=== PATIENT | female | born 1970 | race Caucasian/White ===

== ENCOUNTER → 2020-06-30 10:25 | Outpatient (BNVA) | payer OTHER, SELFPAY | PROVIDERS: PCP Nurse Practitioner Family; Visit Provider Surgery ==

== ENCOUNTER → 2020-07-14 08:37 | Outpatient (BNVA) | payer OTHER, SELFPAY | PROVIDERS: PCP Nurse Practitioner Family; Visit Provider Surgery ==

== ENCOUNTER → 2020-07-28 11:00 | Outpatient (BNVA) | payer OTHER, SELFPAY | PROVIDERS: PCP Nurse Practitioner Family; Visit Provider Dietitian, Registered | DX: E66.9 Obesity, unspecified (principal); Z68.41 Body mass index [BMI] 40.0-44.9, adult | CPT/HCPCS: 97802 ==

== ENCOUNTER 2020-08-01 16:00 | Outpatient (REF) | payer OTHER, SELFPAY ==
[2020-08-02 14:22] LABS: H Pylori Breath Test NOT DETECTED (NOT DETECTED)
== END 2020-08-01 16:01 | disposition home or self-care (01) ==
LOC: HO.LNP 16:00
PROVIDERS: Surgery; PCP Nurse Practitioner Family; Visit Provider Physician Assistant
DX: Z01.818 Encounter for other preprocedural examination (principal); Z11.0 Encounter for screening for intestinal infectious diseases
CPT/HCPCS: 83013

== ENCOUNTER → 2020-08-11 10:14 | Outpatient (BNVA) | payer OTHER, SELFPAY | PROVIDERS: PCP Nurse Practitioner Family; Visit Provider Surgery ==

== ENCOUNTER → 2020-09-08 14:26 | Outpatient (BNVA) | payer OTHER, SELFPAY | PROVIDERS: PCP Nurse Practitioner Family; Referring Provider Nurse Practitioner Family; Visit Provider Surgery ==

== ENCOUNTER 2020-10-06 08:05 | Outpatient (REF) | payer OTHER, SELFPAY ==
--- NOTE | ~2020-10-06 | XR_ITS ---
EXAMINATION: XR CHEST CLINICAL INFORMATION: Shortness of breath COMPARISON: None TECHNIQUE: 2 views of the chest were obtained. FINDINGS: The lungs are clear. There is no hyperinflation, infiltrate, or effusion. The costophrenic sulci are well-defined. The heart is normal in size. The hilar and mediastinal contours are unremarkable. No visible acute bony abnormality. XR/XR chest 2V IMPRESSION: Unremarkable examination.
--- NOTE | 2020-10-06 08:12 | ECG_ITS ---
Test Reason : SOB Blood Pressure : / mmHG Vent. Rate : 053 BPM Atrial Rate : 053 BPM P-R Int : 150 ms QRS Dur : 100 ms QT Int : 446 ms P-R-T Axes : -09 017 025 degrees QTc Int : 418 ms Sinus bradycardia Incomplete right bundle branch block Borderline ECG When compared with ECG of 24-JUL-2017 12:55, No significant change was found Referred By: Saige Mcgrath Electronically Signed By:NICOLE SWANSON
[2020-10-06 08:45] LABS: MANUAL DIFF FLAG NO
[2020-10-06 08:54] LABS: Basophils Percent Auto 0.4 % (0-2); Eosinophils Absolute Auto 0.1 X10*3/uL (0.0-0.4); Eosinophils Percent Auto 1.6 % (0-4); Hematocrit 40.3 % (37-47); Hemoglobin 13.8 g/dl (12.0-16.0); Imm Gran Abs Auto 0.02 X10*3/uL (0.00-0.03); Imm Gran Pct Auto 0.3 % (0.0-0.4); Lymphocytes Absolute Auto 1.3 X10*3/uL (1.2-4.9); Lymphocytes Percent Auto 19.3 % (20-40); Mean Corpuscular HGB Conc 34.2 g/dl (31.0-35.0); Mean Corpuscular Hemoglobin 33.3 pg (27.0-33.0); Mean Corpuscular Volume 97.1 fL (80-98); Mean Platelet Volume 10.3 fL (9.4-12.3); Monocytes Absolute Auto 0.5 X10*3/uL (0.1-1.2); Monocytes Percent Auto 7.3 % (2-11); Neutrophils Absolute Auto 4.8 X10*3/uL (2.0-8.3); Neutrophils Percent Auto 71.1 % (45-73); Platelet Count 239 X10*3/uL (160-400); Red Blood Count 4.15 X10*6/uL (4.20-5.50); Red Cell Distribution Width 12.8 % (11.0-16.0); White Blood Count 6.8 X10*3/uL (4.8-10.8)
[2020-10-06 09:02] LABS: Estimated Average Glucose 94 mg/dL; Hemoglobin A1c % 4.9 %
[2020-10-06 09:18] LABS: Alanine Aminotransferase 23 U/L (0-31); Albumin Level 4.2 g/dL (3.5-5.0); Alkaline Phosphatase 83 U/L (39-117); Anion Gap 12 (12-20); Aspartate Amino Transferase 20 U/L (5-31); Bilirubin Total 0.8 mg/dL (0.0-1.0); Blood Urea Nitrogen 14 mg/dL (9-16); C Reactive Protein 0.59 mg/dL (< or = 0.50); Calcium 9.4 mg/dL (8.4-10.2); Carbon Dioxide 24 mmol/L (22-29); Chloride 106 mmol/L (96-108); Cholesterol 188 mg/dL; Estimated Glomerular Filt Rate > 60; Glucose Fasting 96 mg/dL (60-99); HDL Cholesterol 64 mg/dL; Iron 150 mcg/dL (30-160); LDL Cholesterol Calculated 114 mg/dl; Percent Iron Saturation 51 % (15-50); Potassium 4.1 mmol/L (3.3-5.1); Sodium 138 mmol/L (135-145); Total Iron Binding Capacity 292 mcg/dL (228-428); Total Protein 6.8 g/dL (6.5-8.0); Triglycerides 52 mg/dL; Unsaturated Iron Binding 142 ug/dL
[2020-10-06 09:40] LABS: Thyroid Stimulating Hormone 1.67 uIU/mL (0.32-4.0); Vitamin D 25-OH Total 26.8 ng/mL (>30)
[2020-10-06 09:49] LABS: Vitamin B12 462 pg/mL (200-900)
[2020-10-09 15:47] LABS: Calcium (PTHI) 9.3 mg/dL (8.6-10.2); PTHI 62 pg/mL (14-64)
[2020-10-10 07:06] LABS: Zinc 76 mcg/dL (60-130)
[2020-10-11 15:37] LABS: Vitamin A 50 mcg/dL (38-98)
[2020-10-12 15:01] LABS: Vitamin B1 14 nmol/L (8-30)
[2020-10-14 22:56] LABS: Cotinine, U 24 ng/mL; Nicotine, U 31 ng/mL
== END 2020-10-06 08:06 | disposition home or self-care (01) ==
LOC: HO.LAB 08:05
PROVIDERS: PCP Registered Nurse; Visit Provider Surgery
DX: Z01.818 Encounter for other preprocedural examination (principal); K91.2 Postsurgical malabsorption, not elsewhere classified; E66.9 Obesity, unspecified; R06.02 Shortness of breath; Z68.39 Body mass index [BMI] 39.0-39.9, adult; F17.200 Nicotine dependence, unspecified, uncomplicated; Z90.3 Acquired absence of stomach [part of]
CPT/HCPCS: 71046; 80053; 80061; 80323; 82306; 82607; 83036; 83540; 83970; 84425; 84443; 84590; 84630; 85025; 86140; 93005

== ENCOUNTER → 2020-11-24 09:32 | Outpatient (BNVA) | payer OTHER, SELFPAY | PROVIDERS: PCP Registered Nurse; Visit Provider Internal Medicine Cardiovascular Disease ==

== ENCOUNTER → 2020-12-15 11:29 | Outpatient (BNVA) | payer OTHER, SELFPAY | PROVIDERS: PCP Registered Nurse; Visit Provider Surgery ==

== ENCOUNTER → 2021-01-05 10:22 | Outpatient (REF) | payer OTHER, SELFPAY ==
--- NOTE | 2021-01-05 10:25 | CA_ITS ---
Transthoracic Echocardiogram Patient (Last, First, Middle): Corinne Lockett, Gender: Female Date of : 1970 Age: 50 Procedure Date: 01/05/2021 Procedure Type: Transthoracic Echocardiogram Location: OP Height: 165.1 cm Weight: 107.5 kg BSA: 2.13 m2 Heart Rate: bpm BP: 141 / 75 mmHg Chiropractor Sole Practitioner: JHOANA Referring MD: Gene Degroot MD Symptoms: I45.10 - Unspecified right bundle-branch block Study Quality: Fair/Contrast Conclusions: - Normal biventricular function. No significant valvular or pericardial pathology noted. Normal PA pressures. Findings Procedure Information Contrast agent, definity, is being given per protocol without apparent complications. Left Ventricle Normal left ventricular size, thickness, systolic function, and wall motion. The visually estimated ejection fraction is between 60-65%. Diastolic function is normal for age. Right Ventricle Normal right ventricular cavity size and systolic function. Atria Both atria are normal in size. Aortic Valve Normal aortic valve structure and function. There is no aortic valve stenosis. There is no aortic valve regurgitation. Mitral Valve Normal mitral valve structure and function. There is no mitral valve regurgitation. There is no mitral valve stenosis. Pulmonic Valve Normal pulmonic valve structure and function. There is no pulmonic valve regurgitation. Tricuspid Valve Normal tricuspid valve structure and function. There is no tricuspid valve regurgitation. Normal right atrial pressure. There is no evidence of pulmonary hypertension. Great Vessels The visualized portions of the pulmonary artery and branches are normal. Venous The inferior vena cava is normal in size and collapses greater than 50% with inspiration. Pericardium/Pleural There is no evidence of pericardial effusion. Prior Study Comparison No prior study available for comparison. Measurements 2D Linear Measurements IVSd: 0.95 0.6-0.9/0.6-1.0 cm LVIDd: 4.78 3.9-5.3/4.2-5.9 cm LVIDd Index: 2.24 2.4-3.2/2.2-3.1 cm/m2 LVIDs: 2.87 2.0-3.6 cm LVPWd: 0.79 0.7-1.1 cm Ao Root: 2.80 2.1-3.5 cm LA Diam: 3.30 2.7-3.8/3.0-4.0 cm LAIDs Index: 1.55 1.5-2.3 cm/m2 LV Mass: 174.94 67-162/88-224 g LV Mass Index: 82.13 43-95/49-115 g/m2 LVOT Diam: 2.10 3.0+(-)1.3 cm 2D Systolic Function EF 4C: 69.60 >55% EF 2C: 63.50 >55% EF BiP: 66.30 >55% Mitral Valve MV Pk E: 1.01 MV PK A: 1.18 MV Decel Time: 291.00 E/A: 0.90 E'Lateral: 11.90 E'Medial: 8.59 E/E' Med: 11.80 E/E' Lat: 8.50 PHT: 85.00 MVA PHT: 2.59 Decel Ford: 3.49 Aortic Valve AoV Pk Josias: 1.62 AoV Mn Josias: 1.14 AoV VTI: 0.30 AoV Pk Grad: 10.00 Aov Mn Grad: 6.00 MARKELL Cont.VTI: 2.55 LVOT LVOT Pk Josias: 1.13 LVOT Mn Josias: 0.77 LVOT VTI: 0.22 LVOT Pk Grad: 5.00 LVOT Mn Grad: 3.00 LVOT Diam: 2.10 LVOT Area: 3.46 Diastolic Function MV Pk E: 1.01 MV Pk A: 1.18 E/A: 0.90 E'Medial: 8.59 E/E' Med: 11.80 E' Laterial: 11.90 E/E' Lat: 8.50 Right Ventricle TAPSE (mm): 1.80 TVS' Josias: 13.70 Tricuspid Valve RA Press: 3.00 Great Vessels Aorta Ao Root-2D: 2.80 2.0-3.7 cm Ao Asc: 2.80 2.1-3.4 cm Ao Arch: 2.60 Updated in Other Vendor System with Status of Final Chandra Alves MD electronically signed on 01/07/2021 1:43:47 PM with status of Final
== END ==
LOC: HO.CARD 10:22
PROVIDERS: PCP Registered Nurse; Visit Provider Internal Medicine Cardiovascular Disease
DX: I45.10 Unspecified right bundle-branch block (principal)
CPT/HCPCS: 93306; Q9957

== ENCOUNTER 2021-01-11 12:44 | Outpatient (REF) | payer OTHER, SELFPAY ==
--- NOTE | ~2021-01-11 | XR_ITS ---
EXAMINATION: STANDING VIEWS OF BOTH KNEES. RIGHT KNEE. CLINICAL INFORMATION: Pain. COMPARISON: Right knee November 21, 2017. Standing view of both knees November 21, 2017 TECHNIQUE: Frontal weightbearing view of each knee. Nonweightbearing lateral view and a nonweightbearing sunrise view patella. FINDINGS: Status post right knee replacement. Orthopedic components in position with no evidence of loosening. No fracture. No joint effusion. There is moderate narrowing of the medial femoral tibial joint of the left knee. XR/XR knee RT 2V IMPRESSION: Status post right knee replacement. No acute abnormality of the knee.
--- NOTE | ~2021-01-11 | XR_ITS ---
EXAMINATION: STANDING VIEWS OF BOTH KNEES. RIGHT KNEE. CLINICAL INFORMATION: Pain. COMPARISON: Right knee November 21, 2017. Standing view of both knees November 21, 2017 TECHNIQUE: Frontal weightbearing view of each knee. Nonweightbearing lateral view and a nonweightbearing sunrise view patella. FINDINGS: Status post right knee replacement. Orthopedic components in position with no evidence of loosening. No fracture. No joint effusion. There is moderate narrowing of the medial femoral tibial joint of the left knee. XR/XR knee standing BI IMPRESSION: Status post right knee replacement. No acute abnormality of the knee.
== END 2021-01-11 12:45 | disposition home or self-care (01) ==
LOC: HO.HOSX 12:44
PROVIDERS: Visit Provider Orthopaedic Surgery
DX: Z96.651 Presence of right artificial knee joint (principal); Z79.899 Other long term (current) drug therapy
CPT/HCPCS: 73560; 73565

== ENCOUNTER → 2021-01-22 13:31 | Outpatient (BNVA) | payer OTHER, SELFPAY | PROVIDERS: PCP Registered Nurse; Visit Provider Surgery ==

== ENCOUNTER 2021-02-05 09:13 | Outpatient (REF) | payer OTHER, SELFPAY ==
--- NOTE | ~2021-02-05 | FL_ITS ---
EXAMINATION: XR FLUOROSCOPY UPPER GI WITH AIR CLINICAL INFORMATION: Moderate to severe obesity due to excess calories. COMPARISON: None. TECHNIQUE: Routine upper GI air-contrast study was performed in upright and lying position. FINDINGS: Following oral administration of thick barium and effervescent granules there is normal propagation bolus from the oral cavity through the pharynx, esophagus into stomach without any evidence of obstruction, narrowing or stricture. On placing patient supine and prone lying the course, caliber and peristalsis of the stomach and the duodenal bulb is normal. Mild gastroesophageal reflux is noted. There is no hiatal hernia. The mucosal pattern of the stomach and the duodenum is normal. There is evidence of previous cholecystectomy changes.. FLUOROSCOPY TIME: 1.7 minutes DOSE AREA PRODUCT: 43.385 uGy-m2 (microgray-meter squared) FL/FL upper GI w air IMPRESSION: Mild gastroesophageal reflux without hiatal hernia. Rest of the upper GI exam is unremarkable. There is evidence of previous cholecystectomy.
--- NOTE | ~2021-02-05 | US_ITS ---
EXAMINATION: US COMPLETE ABDOMEN WITH LIVER ELASTOGRAPHY CLINICAL INFORMATION: Obesity COMPARISON: None. TECHNIQUE: Real-time imaging of the abdominal viscera. Noninvasive ultrasound liver fibrosis assessment is performed using Karan ElastPQ point quantification shear wave elastography (pSWE) with a C5-2 MHz transducer. Multiple elastography samples are obtained. FINDINGS: PANCREAS: The visualized pancreatic head and body are normal in appearance. The remainder of the pancreas is obscured from visualization by the overlying bowel gas. ABDOMINAL AORTA: The proximal, middle, and distal aortic segments are normal in caliber. INFERIOR VENA CAVA: Visualized portions are normal. LIVER: Normal. The liver demonstrates normal size, contour and echogenicity. No focal lesion or intrahepatic biliary duct dilatation. The right lobe measures 16 cm in length. The left lobe measures 10 cm in length. Portal flow is normal/hepatopedal Shear wave liver elastography median stiffness is 1.6 m/s (reference: normal median stiffness is 1.3 m/s or less). IQR/median stiffness to assess sampling precision is 0.19 (reference: good quality data set is IQR/median stiffness of 0.15 or less). GALLBLADDER: Surgically absent. COMMON BILE DUCT: Normal in caliber measuring 0.3 cm in diameter. RIGHT KIDNEY: Normal. No hydronephrosis. No renal calculi or focal parenchymal lesions. The kidney measures 11 cm in maximum dimension. LEFT KIDNEY: Normal. No hydronephrosis. No renal calculi or focal parenchymal lesions. The kidney measures 11.4 cm in maximum dimension. SPLEEN: Normal. The spleen measures 9 cm in maximum dimension. FREE FLUID: None. US/US abdomen comp w elastography IMPRESSION: 1. Impression: Normal-appearing liver. Post cholecystectomy. Limited visualization of the tail of the pancreas. 2. Liver elastography: Mild sampling error. In the absence of other known clinical signs, rules out compensated advanced chronic liver disease. REFERENCE: Society of Radiologists in Ultrasound Liver Stiffness Thresholds (2020): LIVER STIFFNESS THRESHOLDS: *Liver Stiffness equal or less than 1.3 m/s: High probability of being normal. *Liver Stiffness less than 1.7 m/s: In the absence of other known clinical signs, rules out compensated advanced chronic liver disease. *Liver Stiffness 1.7-2.1 m/s: Suggestive of compensated advanced chronic liver disease but need further test for confirmation. *Liver Stiffness over 2.1 m/s: Rules in compensated advanced chronic liver disease. *Liver Stiffness over 2.4 m/s: Suggestive of clinically significant portal hypertension. QUALITY OF DATA SET: *IQR/Median value equal or less than 0.15 implies a quality data set. *IQR/Median value over 0.15 implies a poor quality data set. SIGNIFICANT CHANGE FROM PRIOR EXAM: Significant change if liver stiffness measurement is 10% or greater from prior exam. OTHER CONSIDERATIONS: The stage of liver fibrosis may be overestimated in the setting of acute hepatitis, liver inflammation, elevated liver function tests, hepatic vascular congestion, obstructive cholestasis, non-fasting state, and infiltrative diseases such as amyloidosis and lymphoma. In some patients with NAFLD, the liver stiffness thresholds for compensated advanced chronic liver disease may be lower. In causes other than viral hepatitis and NAFLD, liver stiffness thresholds are not well established.
== END 2021-02-05 09:14 | disposition home or self-care (01) ==
LOC: HO.US 09:13
PROVIDERS: PCP Registered Nurse; Visit Provider Surgery
DX: Z01.818 Encounter for other preprocedural examination (principal); E66.01 Morbid (severe) obesity due to excess calories; K21.9 Gastro-esophageal reflux disease without esophagitis; F32.A Depression, unspecified; F17.210 Nicotine dependence, cigarettes, uncomplicated; Z68.38 Body mass index [BMI] 38.0-38.9, adult; Z90.49 Acquired absence of other specified parts of digestive tract; Z88.6 Allergy status to analgesic agent; Z91.018 Allergy to other foods; Z79.899 Other long term (current) drug therapy
CPT/HCPCS: 74246; 76705; 76981

== ENCOUNTER → 2021-02-09 07:52 | Outpatient (BNVA) | payer OTHER, SELFPAY | PROVIDERS: PCP Registered Nurse; Visit Provider Physician Assistant ==

== ENCOUNTER 2021-02-15 07:42 | Day surgery (SDC) | payer OTHER, SELFPAY ==
[2021-02-08 09:57] VITALS: BMI 38.2
[2021-02-09 09:09] LABS: MANUAL DIFF FLAG NO
[2021-02-09 10:00] LABS: Basophils Percent Auto 0.5 % (0-2); Eosinophils Absolute Auto 0.1 X10*3/uL (0.0-0.4); Hematocrit 42.1 % (37.0-47.0); Hemoglobin 14.3 g/dl (12.0-16.0); Imm Gran Abs Auto 0.02 X10*3/uL (0.00-0.03); Imm Gran Pct Auto 0.3 % (0.0-0.4); Lymphocytes Absolute Auto 1.3 X10*3/uL (1.2-4.9); Mean Corpuscular Hemoglobin 33.4 pg (27.0-33.0); Mean Corpuscular Volume 98.4 fL (80.0-98.0); Monocytes Absolute Auto 0.5 X10*3/uL (0.1-1.2); Monocytes Percent Auto 8.9 % (2-11); Neutrophils Absolute Auto 4.1 x10*3/uL (2.0-8.3); Neutrophils Percent Auto 68.3 % (45-73); Platelet Count 215 X10*3/uL (160-400); Red Blood Count 4.28 X10*6/uL (4.20-5.50); Red Cell Distribution Width 12.6 % (11.0-16.0)
[2021-02-09 10:05] LABS: INTERNATIONAL NORM RATIO 1.1 (0.9-1.1); Prothrombin Time 12.5 SEC (9.9-13.0)
[2021-02-09 10:08] LABS: Partial Thromboplastin Time 36.3 SEC (24.1-38.0)
[2021-02-09 10:10] LABS: Estimated Average Glucose 91 mg/dL; Hemoglobin A1c % 4.8 %
[2021-02-09 10:34] LABS: Alanine Aminotransferase 41 U/L (0-31); Albumin Level 4.4 g/dL (3.5-5.0); Alkaline Phosphatase 86 U/L (39-117); Anion Gap 13 (12-20); Aspartate Amino Transferase 32 U/L (5-31); Bilirubin Total 0.7 mg/dL (0.0-1.0); Blood Urea Nitrogen 17 mg/dL (9-16); C Reactive Protein 0.58 mg/dL (< or = 0.50); Calcium 9.6 mg/dL (8.4-10.2); Carbon Dioxide 23 mmol/L (22-29); Chloride 105 mmol/L (96-108); Cholesterol 193 mg/dL; Creatinine Clr Calc Pharmacy 88.7; Estimated Glomerular Filt Rate > 60; Glucose Random 82 mg/dL (60-115); HDL Cholesterol 59 mg/dL; LDL Cholesterol Calculated 121 mg/dl; Potassium 4.4 mmol/L (3.3-5.1); Sodium 137 mmol/L (135-145); Total Protein 7.1 g/dL (6.5-8.0); Triglycerides 67 mg/dL
[2021-02-09 10:55] LABS: Insulin 8 uU/mL (2-29); TSH reflex Free T4 1.83 uIU/mL (0.32-4.0)
--- NOTE | 2021-02-10 18:54 | MHC.SHP ---
Pre-Procedural Eval Section A Date of Service: 02/10/21 The patient is an INPATIENT: No The History & Physical has been completed within 30 days and I have reviewed it.: Yes Section B Chief Complaint: Obesity Relevant Family History (Specify if Yes): No Relevant Social History: None Present Medications: None Medical History: No relevant PMH History of Previous Operations: No relevant previous surgery Allergies: Allergies Allergy/AdvReac Type Severity Reaction Status Date / Time codeine [CODEINE] AdvReac Intermediate MIGRAINE Verified 02/08/21 09:51 [place] Allergy Intermediate HIVES Uncoded 02/08/21 09:51 Review of Systems Sugical H&P ROS: Negative: Constitution, Cardiovascular, Respiratory, Neurological, Psychiatric, Hem-Onc, Allergic/Immunologic, Gastrointestinal, Genitourinary, Musculoskeletal, Integumentary, Endocrine and Eyes/Ears/Nose/Throat Exam Surgical H&P Exam: Normal: HEENT, Normal: Heart, Normal: Lungs, Normal: Extremities, Normal: Abdomen, Normal: Skin and Normal: Neurological Plan Diagnosis/Plan: Unchanged I have reviewed the history and physical and performed a pertinent physical examination on my patient. No changes have occurred unless specified.
--- NOTE | 2021-02-14 09:08 | P.CONAN_ITS ---
Documented by User: Rosa Patterson NP 02/14/21 09:10 HPI - Anesthesia Eval Consult details Narrative: 50yo F for Gastrectomy Sleeve, EGD, Poss Diaphragmatic Hernia, Poss Ventral Hernia, Poss open Cardiac cleared at low risk PMFSH Active Problems Active Problems: All Active Problems (Updated 02/05/21 @ 12:56 by Prabhu Sanz MD) BMI 38.0-38.9,adult (Acute) Status post right knee replacement (Acute) Morbid obesity due to excess calories (Acute) BMI 40.0-44.9, adult (Acute) Incomplete right bundle branch block (Acute) Adjustment disorder, unspecified (Acute) Obesity (Acute) BMI 39.0-39.9,adult (Acute) Abnormal EKG (Acute) Smoker (Acute) Depression (Acute) Shortness of breath (Acute) Preoperative examination (Acute) Past Medical History Medical History Depression Gastroesophageal reflux disease Family History Family History Mother Dementia Arthritis Father Hypertension OCD (obsessive compulsive disorder) Kidney tumor Sister No problems noted. Sister Anxiety Brother Acid reflux Surgical History Surgical History H/O gynecological procedure History of ankle surgery History of tonsillectomy and adenoidectomy Hx of cholecystectomy Hx of endoscopy Hx of foot surgery Hx of knee surgery Hx of removal of cyst Hx of tubal ligation Social History Social History Are you a primary care coordination manager to a significant other at home: No Do you presently have visiting nurse or other home services: No Alcohol intake: current Alcohol intake frequency: former alcohol drinker Patient Tobacco Use Status: Former Tobacco user Quit Date: 09/2020 Tobacco use type: Cigarette Cigarettes Per Day: 1 Years Smoked: 34 Smoked in Last 30 Days: No Use of substances other than those prescribed or required for medical reasons: No Have you been hit, kicked, punched, or otherwise hurt by someone within the past year? If so, by whom?: No Are you DNR?: No Advance Directives: No Advance Directives Information Provided: No Advance Directives on File: No Recently lost weight without trying: No How much weight loss: 24-33 pounds Eating poorly because of decreased appetite: No Nutrition screen score: 3 Nutrition Risks: No Nutritional Risk Patient : No Meds Allergies Allergy/AdvReac Type Severity Reaction Status Date / Time codeine [CODEINE] AdvReac Intermediate MIGRAINE Verified 02/15/21 07:25 [place] Allergy Intermediate HIVES Uncoded 02/08/21 09:51 Home Medications Medication Instructions Recorded Confirmed Last Taken Type Lactobacillus acidophilus 10 mg PO DAILY 06/30/20 02/08/21 02/06/21 History (Acidophilus) omeprazole 20 mg capsule,delayed 20 mg PO DAILY 06/30/20 02/08/21 02/15/21 04:45 History release bupropion HCl 300 mg 24 hr tablet, 450 mg PO DAILY tab 07/14/20 02/08/21 Unknown History extended release albuterol sulfate 90 mcg/actuation 2 puff INHALATION Q6H PRN 08/11/20 02/08/21 Unknown History aerosol inhaler cyclobenzaprine 10 mg tablet 10 mg PO BEDTIME PRN tab 09/08/20 02/08/21 02/06/21 History fexofenadine 60 mg tablet (Ally 180 mg PO DAILY tab 09/08/20 02/08/21 02/06/21 History Allergy) cholecalciferol (vitamin D3) 25 25 mcg PO DAILY 11/24/20 02/08/21 02/06/21 History mcg (1,000 unit) capsule cyanocobalamin (vitamin B-12) 1,000 mcg PO DAILY 11/24/20 02/08/21 02/06/21 History 1,000 mcg capsule vitamin B complex (B 1 tab PO DAILY 11/24/20 02/08/21 02/06/21 History Complex-Vitamin B12) Exam Exam Date and Time: February 14, 2021 0908 Height,Weight and Vital Signs: Height 5 ft 5 in Weight 104.326 kg Pertinent Lab Results Pertinent Lab Results: Laboratory Tests 02/09/21 02/09/21 02/09/21 09:05 09:05 09:05 WBC 6.0 RBC 4.28 Hgb 14.3 Hct 42.1 MCV 98.4 H MCH 33.4 H MCHC 34.0 RDW 12.6 Plt Count 215 MPV 11.0 Immature Gran % (Auto) 0.3 Neut % (Auto) 68.3 Lymph % (Auto) 21.0 Davis % (Auto) 8.9 Eos % (Auto) 1.0 Baso % (Auto) 0.5 Lymph # (Auto) 1.3 Davis # (Auto) 0.5 Eos # (Auto) 0.1 Baso # (Auto) 0.0 Abs Immat Gran (auto) 0.02 Absolute Neuts (auto) 4.1 Absolute Nucleated RBC 0.000 Nucleated RBC % (auto) 0.0 PT 12.5 INR 1.1 APTT 36.3 Sodium 137 Potassium 4.4 Chloride 105 Carbon Dioxide 23 Anion Gap 13 BUN 17 H Creatinine 0.93 Estim Creat Clear Calc 88.7 Estimated GFR > 60 Random Glucose 82 Estimat Average Glucose Hemoglobin A1c % Insulin Level 8 Calcium 9.6 Total Bilirubin 0.7 AST 32 H D ALT 41 H Alkaline Phosphatase 86 C-Reactive Protein 0.58 H Total Protein 7.1 Albumin 4.4 Triglycerides 67 Cholesterol 193 LDL Cholesterol, Calc 121 HDL Cholesterol 59 TSH 1.83 Blood Type Antibody Screen 02/09/21 02/09/21 09:05 09:05 WBC RBC Hgb Hct MCV MCH MCHC RDW Plt Count MPV Immature Gran % (Auto) Neut % (Auto) Lymph % (Auto) Davis % (Auto) Eos % (Auto) Baso % (Auto) Lymph # (Auto) Davis # (Auto) Eos # (Auto) Baso # (Auto) Abs Immat Gran (auto) Absolute Neuts (auto) Absolute Nucleated RBC Nucleated RBC % (auto) PT INR APTT Sodium Potassium Chloride Carbon Dioxide Anion Gap BUN Creatinine Estim Creat Clear Calc Estimated GFR Random Glucose Estimat Average Glucose 91 Hemoglobin A1c % 4.8 Insulin Level Calcium Total Bilirubin AST ALT Alkaline Phosphatase C-Reactive Protein Total Protein Albumin Triglycerides Cholesterol LDL Cholesterol, Calc HDL Cholesterol TSH Blood Type O Positive Antibody Screen NEGATIVE Narrative Narrative: EKG 09/2020 Vent. Rate : 053 BPM ? ? Atrial Rate : 053 BPM ?? P-R Int : 150 ms? QRS Dur : 100 ms ? ? QT Int : 446 ms ? ? ? P-R-T Axes : -09 017 025 degrees ?? QTc Int : 418 ms ? Sinus bradycardia Incomplete right bundle branch block Borderline ECG When compared with ECG of 24-JUL-2017 12:55, No significant change was found ECHO Conclusions: - Normal biventricular function. ? No significant valvular or pericardial pathology noted.? Normal PA pressures. ? ?? Assessment and Plan Assessment Anesthesia Assessment: Chart Reviewed Documented by User: Yeison Richardson 02/15/21 09:16 [facility] Past Medical History Medical History Depression Gastroesophageal reflux disease Functional capacity: independent ambulation Family History Family History Mother Dementia Arthritis Father Hypertension OCD (obsessive compulsive disorder) Kidney tumor Sister No problems noted. Sister Anxiety Brother Acid reflux Family history of problems with anesthesia: Yes (Sister ( awarness) ) Surgical History Surgical History H/O gynecological procedure History of ankle surgery History of tonsillectomy and adenoidectomy Hx of cholecystectomy Hx of endoscopy Hx of foot surgery Hx of knee surgery Hx of removal of cyst Hx of tubal ligation History of Problems with Anesthesia: No Social History Social History Are you a primary care coordination manager to a significant other at home: No Do you presently have visiting nurse or other home services: No Alcohol intake: current Alcohol intake frequency: former alcohol drinker Patient Tobacco Use Status: Former Tobacco user Quit Date: 09/2020 Tobacco use type: Cigarette Cigarettes Per Day: 1 Years Smoked: 34 Smoked in Last 30 Days: No Use of substances other than those prescribed or required for medical reasons: No Have you been hit, kicked, punched, or otherwise hurt by someone within the past year? If so, by whom?: No Are you DNR?: No Advance Directives: No Advance Directives Information Provided: No Advance Directives on File: No Recently lost weight without trying: No How much weight loss: 24-33 pounds Eating poorly because of decreased appetite: No Nutrition screen score: 3 Nutrition Risks: No Nutritional Risk Patient : No Meds Allergies Allergy/AdvReac Type Severity Reaction Status Date / Time codeine [CODEINE] AdvReac Intermediate MIGRAINE Verified 02/15/21 07:25 [place] Allergy Intermediate HIVES Uncoded 02/08/21 09:51 Home Medications Medication Instructions Recorded Confirmed Last Taken Type Lactobacillus acidophilus 10 mg PO DAILY 06/30/20 02/08/21 02/06/21 History (Acidophilus) omeprazole 20 mg capsule,delayed 20 mg PO DAILY 06/30/20 02/08/21 02/15/21 04:45 History release bupropion HCl 300 mg 24 hr tablet, 450 mg PO DAILY tab 07/14/20 02/08/21 Unknown History extended release albuterol sulfate 90 mcg/actuation 2 puff INHALATION Q6H PRN 08/11/20 02/08/21 Unknown History aerosol inhaler cyclobenzaprine 10 mg tablet 10 mg PO BEDTIME PRN tab 09/08/20 02/08/21 02/06/21 History fexofenadine 60 mg tablet (Ally 180 mg PO DAILY tab 09/08/20 02/08/21 02/06/21 History Allergy) cholecalciferol (vitamin D3) 25 25 mcg PO DAILY 11/24/20 02/08/21 02/06/21 History mcg (1,000 unit) capsule cyanocobalamin (vitamin B-12) 1,000 mcg PO DAILY 11/24/20 02/08/21 02/06/21 History 1,000 mcg capsule vitamin B complex (B 1 tab PO DAILY 11/24/20 02/08/21 02/06/21 History Complex-Vitamin B12) Exam Airway Mallampati Class: III TM Dist: >3cm Neck ROM: Full Loose/Missing/Broken Teeth: Yes (Crowns ) Heart: rrr Lungs: bl breath sounds Assessment and Plan Final Anesthetic Review Family History of Problems with Anesthesia: Yes (Sister ( awarness) ) History of Problems with Anesthesia: No NPO: Yes ASA Class: III Final Preanesthetic Review: Meds/Allgs Chart Reviewed Patient Risk: Intermediate Procedure Risk: Intermediate Anesthetic Plan Anesthetic Plan: GA Disposition: Standard PACU
[2021-02-15] VITALS (17 sets, daily range): BP systolic 107–137; BP diastolic 63–84; PULSE 60–88; RESP 14–20; TEMP 35.9–37.1; O2SAT 95–99
[2021-02-15 06:54] LABS: COVID-19 Test Negative (Negative); IDNOW Serial# 9DD0AD1C
[2021-02-15] MEDS: Lactated Ringers 1,000 ML 100 ML IVCONT ×3 (06:58→20:49)
[2021-02-15] MEDS: Lactated Ringers 1,000 ML 999 ML IV (07:03)
--- NOTE | 2021-02-15 10:46 | P.DS_ITS ---
DS: Providers Provider Date of Service: 02/16/21 Primary care physician: Alma Laboy NP DS: Summary Hospital Course Hospital Course: ADMITTING DIAGNOSIS: morbid obesity, GERD, paraesophageal hernia, depression DISCHARGE DIAGNOSIS: same, s/p laparoscopic sleeve gastrectomy and repair diaphragmatic hernia PAST SURGICAL HISTORY: cholecystectomy, BTL, orthopedic surgeries PROCEDURE: upper endoscopy, laparoscopic sleeve gastrectomy and repair of diaphragmatic hernia hernia DISCHARGE SUMMARY: History of Present Illness: The patient is a 50 year-old woman with a BMI of 43.0 kg/m2 and associated co-morbidities as described above. The patient had extensive work-up,lost 26 lbs preoperatively and was electively scheduled for laparoscopic, possible open sleeve gastrectomy and gastropexy. Risks and complications of the surgery were discussed with the patient in advance, particularly the possibility of , pulmonary embolism, anastomotic leak, bleeding, bowel injury, GERD, cardiac, renal or pulmonary complications. The patient understood all the risks and was in agreement with the surgical plan. Hospital Course: The patient underwent an uneventful laparoscopic sleeve gastrectomy with gastropexy and repair of diaphragmatic hernia on the day of admission. Postoperatively, the patient was transferred to the surgical floor. The patient received IV Acetaminophen and IV dilaudid for pain control. Patient was started on bariatric phase 1 diet POD #0. On postoperative day one, the patient was feeling well without nausea, vomiting, fevers, or tachycardia. The patient had some mild incisional pain and the abdomen was soft. On the morning of postoperative day one, the patient was continued on 1 ounce of water or ice every half hour. During the day, the patient did fairly well, having some incisional pain, but able to ambulate adequately and to tolerate liquids well. Since the patient is doing well, we decided that the patient was ready to be discharged. The patient was given instructions to follow-up with me next week and to call my office for any fever over 101, persistent abdominal pain, nausea, vomiting, GERD, symptoms of DVT such as calf tenderness, or leg swelling, or pulmonary embolism such as chest pain or shortness of breath. The patient was also instructed to drink 40-60 ounces of liquids per day using the 1-ounce cups. The patient had been given prescriptions for Tylenol for pain, Zofran prn for nausea, and pantoprazole and carafate previously. The patient was encouraged to ambulate and use the incentive spirometer. The patient was allowed to shower, but no baths, and encouraged to stay active at home. All of these instructions were given to the patient personally. All questions were answered and the patient understood all instructions, the instructions were also given to the patient in print. Time Spent with Patient Time attestation: Total time spent providing and/or coordinating discharge services: Discharge coordination time: Less than 30 minutes Quality: Stroke Does the patient have a stroke diagnosis?: No Physical Exam Vital Signs: Vital Signs: Last Vital Signs Temp 98.1 F 02/15/21 10:39 Pulse 87 02/15/21 10:44 Resp 16 02/15/21 10:44 BP 124/66 02/15/21 10:44 Pulse Ox 99 02/15/21 10:44 BMI result Body Mass Index 38.2 DS: Data Data Completed and Pending Pending studies at discharge: Pending at discharge 02/15/21 10:18 Surgical [PTH] Routine Labs on day of discharge: Laboratory Results - last 24 hr 02/15/21 06:15 COVID-19 ([facility]) Negative COVID-19 Clin Com See Note Discharge Plan Discharge Patient Disposition: Home, Self-Care Referrals: Alma Laboy NP [Primary Care Provider] - 1 Week Discharge Medications: Continued albuterol sulfate 90 mcg/actuation HFA aerosol inhaler 2 puff inhalation Q6H PRN (Reason: Wheezing) RF: 0 bupropion HCl 300 mg tablet extended release 24 hr 450 mg PO DAILY RF: 0 fexofenadine [Ally Allergy] 60 mg tablet 180 mg PO DAILY RF: 0 cyclobenzaprine 10 mg tablet 10 mg PO BEDTIME PRN (Reason: muscle spasm) RF: 0 pantoprazole 40 mg tablet,delayed release (DR/EC) 40 mg PO DAILY Qty: 30 RF: 2 sucralfate 100 mg/mL suspension 10 ml PO BID Qty: 400 RF: 2 ondansetron HCl [Zofran] 4 mg tablet 4 mg PO Q12H Qty: 20 RF: 0 Discontinued cyanocobalamin (vitamin B-12) 1,000 mcg capsule 1,000 mcg PO DAILY RF: 0 cholecalciferol (vitamin D3) 25 mcg (1,000 unit) capsule 25 mcg PO DAILY RF: 0 vitamin B complex [B Complex-Vitamin B12] Tablet 1 tab PO DAILY RF: 0 omeprazole 20 mg capsule,delayed release(DR/EC) 20 mg PO DAILY RF: 0 Lactobacillus acidophilus [Acidophilus] Capsule 10 mg PO DAILY RF: 0 polyethylene glycol 3350 [Miralax] 17 gram powder in packet 17 g PO DAILY Qty: 14 RF: 0 naproxen [EC-Naprosyn] 500 mg tablet,delayed release (DR/EC) 500 mg PO BID PRN (Reason: pain) Qty: 30 RF: 1 Discharge Orders: Discharge Order (Routine); Ordered 02/16/21 Ordered By: Prabhu Sanz Activity Restrictions/Additional Instructions: No tub baths, sex or returning to work until discussed at first post op appointment. No exercise, alcohol, tobacco or illegal drug use. Continue to use incentive spirometer hourly while awake. Walk in home for 5- 10 minutes every 2 hours during the first week. Continue phase 1 diet today and start phase 2 diet tomorrow morning. Follow all instructions in the bariatric handbook and call with any questions. 1. Please call your doctor or come back to the emergency room should any new symptoms arise. 2. You will receive a courtesy call from [facility] 24-48 hours after discharge. 3. Activity: abstain from alcohol, practice limited stair climbing, no bending, no driving, no exercise, no illicit substances, no lifting, no sex, no tub bath, no work. 4. Diet: continue as discussed with Dr. Sanz. 5. Dressing Change/Wound Care: Do not change or remove surgical dressings unless they are wet or soiled. 6. Call your doctor if: - Your temperature exceeds 101.5 F - You experience excessive pain or swelling - You have an unexpected reaction to medication - You have excessive bleeding - You experience continued vomiting/nausea - Your incision begins to separate - Your incision shows signs of infection such as increased redness, swelling, excessive pain, heat, or drainage (light blood or clear fluid is normal) 7. General instructions: No lifting greater than 5 lbs for the next 4 weeks[address] driving within 24 hours of taking narcotic pain medications. If you do not move your bowels in the next 2 days, please take milk of magnesia over the counter. Please follow the post op diet and do not advance your diet until you are seen in the office in about 2 weeks. Please walk around your home every hour or two to prevent blood clots from forming in your legs. You do not need to wake from sleeping to walk. Please sleep in a bed or couch to prevent kinking at the hips and knees. Please take your incentive spirometer (your lung patient support partner) home with you and use it for the next few days to prevent pneumonias. You may shower, no hot tubs, baths or swimming pools. Please call the office with any questions or concerns such as increasing abdominal pain, fever, chills, shortness of breath, chest pain, leg pain or swelling, or redness or drainage from your incisions. Do not hesitate to contact the office with any questions at . The patient's medical history has been reviewed and they are considered low risk for post op DVT and therefore DVT prophylaxis is not considered necessary. Travel after surgery was reviewed. The patient has not disclosed any travel plans during the first 30 days after surgery and they have been advised that within the first 30 days after surgery any bus, plane, train or car travel over 2 hours in duration is contraindicated due to the possibility of developing blood clots from immobility. Any travel, needs to include periods of ambulation of 10 minutes in duration every 2 hours. The patient was instructed to discuss any plans for travel during this period with their bariatric surgeon.
[2021-02-15] MEDS: Famotidine/PF 20 MG/2 ML VIAL IVPUSH ×2 (10:54→20:48)
--- NOTE | 2021-02-15 10:54 | P.BOP_ITS ---
Brief Operative Note Date of Service: 02/15/21 Pre-op diagnosis: Morbid obesity and comorbidities (see below) Post-op diagnosis: same Procedure: INITIAL PATIENT BMI ON PRESENTATION AT OUR OFFICE: 42.7 kg/m2 LAST BMI BEFORE SURGERY: 38.5 kg/m2 COMORBIDITIES: GERD, depression, DJD, asthma, liver fibrosis, RBBB The patient participated in an intensive weekly lifestyle ?intervention and exercise program during which the patient ?has lost between the initial office visit and the last preoperative visit 26lbs, or 10.12% of initial actual body weight. The patient met the BMI-criteria for bariatric surgery based on the BMI on initial presentation. The patient should not be penalized for achieving such weight loss because ?it is not sustainable long-term without surgical intervention and it was achieved in preparation for bariatric surgery ?under my direction and based on my published research ([email or web address] and? https://www.soard.org/article/[email or web address](10)88430-X/pdf ) ?that a 10% preoperative weight loss improves long-term weight loss after surgery and reduces perioperative complications.? Insurance carriers such as [employer] have endorsed my recommendations ?and have included in their policies criteria to include a 10% preoperative weight loss requirement. PROCEDURE: Esophago-gastroscopy, laparoscopic repair of incarcerated diaphragmatic hernia, laparoscopic lysis of adhesions, laparoscopic sleeve gastrectomy and laparoscopic gastropexy INDICATIONS: This is a 50 year-old female who was electively scheduled for laparoscopic, possibly open sleeve gastrectomy. The risks and complications of the procedure were discussed with the patient in advance, particularly the possibility of ; pulmonary embolism; staple line leak; bleeding; GERD; cardiac, pulmonary, or renal complications; as well as long-term problems such as insufficient weight loss, vitamin deficiency, strictures, or ulcers. The patient understood all the risks, and was in agreement to proceed with surgery. DESCRIPTION OF PROCEDURE: After informed consent was obtained from the patient, the patient was given preoperative antibiotics, and was transferred to the operating room. After successful induction of general anesthesia, pneumatic compressive devices were placed on both lower extremities. An upper endoscopy was performed next. The oropharynx and esophagus appeared to be within normal limits. There was a diaphragmatic hernia present of moderate size that was not reported at the preoperative upper GI. The stomach was entered. Then after all fluid and air were suctioned and the stomach was fully decompressed, the scope was withdrawn and secured in the mid esophagus. The patient was then prepped and draped in the usual sterile manner, and abdominal access was established at the right upper quadrant with the Ursula technique. A 12 mm blunt port was inserted, and the abdomen was insufflated with CO2 to a pressure of 15 mmHg. Under direct visualization, additional ports were placed, specifically two 5 mm Versi-step ports to the left upper quadrant, and a 5 mm Versi-Step port to the right upper quadrant. 1% lidocaine plain was used to infiltrate all port sites as well as all fascia defects. Following that, the patient was placed in a steep reverse Trendelenburg position. An additional 5 mm port was placed to the right flank for the Mediflex retractor that was used to retract the left lobe of the liver. The gastro-esophageal fat pad was opened with the ultrasonic device (Thunderbeat, Olympus) and the anterior esophagus and hiatus were exposed. The angle of His was opened with the ultrasonic device the fundus of the stomach from any diaphragmatic and splenic attachments. I then opened the gastrocolic ligament between the transverse colon and the greater curvature of the stomach with the ultrasonic device to enter the lesser sac and facilitate the ligation of the short gastric vessels. I started at a mid-point along the greater curvature and using the Thunderbeat, all short gastric vessels were divided all the way to the angle of His until the left sarah was completely dissected at its entirety. I then divided the gastro-colic ligament distally to a distance of about 3-4 cm proximal to the esophagus. There were extensive congenital adhesions between the pancreas and posterior gastric wall. Those were lysed completely with the ultrasonic device. Adhesiolysis took approximately 45 min to complete. There was an obvious significant-sized incarcerated hiatal hernia including the stomach and perigastric fat. I continued dissecting along the hiatus toward the left sarah and the angle of His. I fully mobilized the fat pad that was incarcerated in the hernia. There was a large replaced left hepatic artery at the lesser curvature that was identified and preserved. I then continued by dissecting even further into the posterior retro-esophageal space all the way to the angle of His. I continued to mobilize the esophagus into the mediastinum circumferentially. Both vagal nerves were seen and preserved. At that point, I was able to have at least 3 to 5 cm of esophagus into the abdomen.? After I completely mobilized the esophagus from both the left and right sarah and I had a good mobilization of the esophagus circumferentially, I closed the hernia defect with four interrupted #0 Surgidac sutures using the Endo Stitch device, two of which were placed posterior and two anterior to the esophagus. ? The repair of the diaphragmatic hernia was very difficult due to the large vessel that had to be preserved and limited exposure as well as the incarcerated component and the large amount of fat in the area. The operation was prolonged for an additional hour for a total operative time of two hours and 15 minutes. The stomach was then divided transversely with one Endo SARI-45 purple, one SARI- 45 orange and four SARI-60 articulating orange loads using the AEON stapler and loads. Every effort was made that the gastric sleeve had a tubular shape and an even caliber throughout. Once the sleeve resection was completed, the staple line of the gastric sleeve was reinforced with Hemoclips. The resected stomach was retrieved without difficulty from the Ursula port. A gastropexy was then performed in order to prevent postoperative GERD and partial gastric volvulus. Several interrupted 2.0 Surgidac sutures were placed between the sleeve's staple line and the previously divided greater omentum and gastro-colic ligament using the Endo-Stitch device. ?An upper endoscopy was performed. There was no narrowing at the GE junction. The scope was easily advanced all the way to the pylorus which was clearly visualized. There was no narrowing anywhere and the sleeve's caliber was even throughout. The sleeve's staple line was inspected and there was no evidence of ischemia, bleeding or dehiscence. At that point the gastroscope was withdrawn from the patient?s mouth while we were decompressing the bowel and the stomach from any remaining air. I looked into the lesser sac to see how the sleeve was situating and it was situating well. There was no bleeding from the staple line, spleen, or short gastric vessels. The Mediflex retractor was removed, and the undersurface of the liver was inspected and there was no bleeding. The patient was placed in supine position. I closed the fascial defect of the 12 mm port site with a figure of eight #1 Polysorb suture. Then 100 cc 0.25 % Marcaine plain with 10 mg of Dexamethasone were used to infiltrate the fascial closure as well as all skin incisions. At this point, the abdomen was deflated, all ports were removed under direct vision, and no bleeding was noted from any of the port sites. The skin incisions were irrigated with saline and were closed with 4-0 absorbable monofilament sutures. Steri-Strips and OpSites were used to cover all incisions. The patient was extubated and was transferred in stable condition to the recovery room for further care. I was present and performed all shrestha parts of the procedure. Ms. Hernandez was the certified surgical tech/first assistant. There were no residents to assist with this case. Can Sanz MD, PhD, FACS Surgeon: Prabhu Sanz MD Anesthesia: GETA, local and other (TAP block) Was an Client Relations Representative used for this Procedure?: Yes Client Relations Representative: Jeanne Hernandez Estimated blood loss (mL): 10 IV fluids (mL): 3,000 Urine output (mL): 0 (No De Jesus to record) Pathology: other (Stomach) Condition: stable Disposition: PACU
[2021-02-15] MEDS: HYDROmorphone HCl 0.5 MG/0.5 ML SYRINGE 0.25 MG IVPUSH ×4 (10:59→19:41)
--- NOTE | 2021-02-15 11:02 | PM.PNGS ---
Subjective Subjective Date of Service: 02/16/21 Interval history: Patient has mild incisional pain, but was able to ambulate and use the incentive spirometer. She is tolerating phase 1 bariatric diet Physical Exam Vital Signs: Vital Signs: Last Vital Signs Temp 98.1 F 02/15/21 10:39 Pulse 82 02/15/21 10:49 Resp 20 02/15/21 10:59 BP 123/76 02/15/21 10:49 Pulse Ox 99 02/15/21 10:49 BMI result Body Mass Index 38.2 GI: Inspection: Yes normal to inspection, Yes incision (clean, dry and intact) and Yes obesity Extrem: Right lower extremity: normal to inspection (no calf tenderness) Left lower extremity: normal to inspection (no calf tenderness) Objective Data Active Medications Albuterol Sulfate (Albuterol Sulfate (0.083%) 2.5 Mg/3 Ml Vial.Neb) 2.5 mg INHALE ONCE PRN PRN Reason: Shortness of Breath/Wheezing Albuterol Sulfate (Albuterol Sulfate (0.083%) 2.5 Mg/3 Ml Vial.Neb) 2.5 mg INHALE ONCE PRN PRN Reason: Wheezing Famotidine (Famotidine/Pf 20 Mg/2 Ml Vial) 20 mg IVPUSH BID [facility] Last Admin: 02/15/21 10:54 Dose: 20 mg Documented by: SHRUTI Hydromorphone HCl (Hydromorphone Hcl 0.5 Mg/0.5 Ml Syringe) 0.25 mg IVPUSH Q5M PRN; Protocol PRN Reason: Pain, Severe (Pain Scale 7-10) Last Admin: 02/15/21 10:59 Dose: 0.25 mg Documented by: SHRUTI Lactated Ringer's (Lr) 1,000 mls @ 100 mls/hr IVCONT .Q10H [facility] Last Admin: 02/15/21 06:58 Dose: 100 mls/hr Documented by: ABRAM Promethazine HCl 12.5 mg/ (Sodium Chloride) 50.5 mls @ 202 mls/hr IV ONCE PRN PRN Reason: Nausea and Vomiting Lactated Ringer's (Lr) 1,000 mls @ 100 mls/hr IVCONT .Q10H [facility] Labs CBC & Chem 7: 02/16/21 05:11 02/16/21 05:11 Labs: Laboratory Results - last 24 hr 02/15/21 06:15 COVID-19 ([facility]) Negative COVID-19 Clin Com See Note Procedures Date of Service Date of Service: 02/16/21 Progress Note: A&P Assessment and plan (1) S/P laparoscopic sleeve gastrectomy: Status: Acute Assessment and Plan: s/p laparoscopic sleeve gastrectomy, lysis of adhesions repair of diaphragmatic hernia, and gastropexy Doing well Check am labs. If OK, will discharge home? 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: Status: Acute Fall Risk Details Current Medications: Current Medications Albuterol Sulfate (Albuterol Sulfate (0.083%) 2.5 Mg/3 Ml Vial.Neb) 2.5 mg INHALE ONCE PRN PRN Reason: Shortness of Breath/Wheezing Albuterol Sulfate (Albuterol Sulfate (0.083%) 2.5 Mg/3 Ml Vial.Neb) 2.5 mg INHALE ONCE PRN PRN Reason: Wheezing Famotidine (Famotidine/Pf 20 Mg/2 Ml Vial) 20 mg IVPUSH BID [facility] Last Admin: 02/15/21 10:54 Dose: 20 mg Documented by: Hydromorphone HCl (Hydromorphone Hcl 0.5 Mg/0.5 Ml Syringe) 0.25 mg IVPUSH Q5M PRN; Protocol PRN Reason: Pain, Severe (Pain Scale 7-10) Last Admin: 02/15/21 10:59 Dose: 0.25 mg Documented by: Lactated Ringer's (Lr) 1,000 mls @ 100 mls/hr IVCONT .Q10H [facility] Last Admin: 02/15/21 06:58 Dose: 100 mls/hr Documented by: Promethazine HCl 12.5 mg/ (Sodium Chloride) 50.5 mls @ 202 mls/hr IV ONCE PRN PRN Reason: Nausea and Vomiting Lactated Ringer's (Lr) 1,000 mls @ 100 mls/hr IVCONT .Q10H [facility] Time Spent With Patient Time: Total time spent is greater than 50% in coordination of care (as documented) at patient's floor/unit and/or counseling patient: Time with patient: less than 15 minutes Quality Stroke Does the patient have a stroke diagnosis?: No VTE Prior VTE?: No VTE Risk Level:: Surgical - moderate VTE Device Contraindication: N/A - Device Ordered VTE Drug Contraindication: Treatment Not Indicated
[2021-02-15 11:09] LABS: Hematocrit 41.2 % (37.0-47.0); Hemoglobin 14.1 g/dl (12.0-16.0)
[2021-02-15 11:20] LABS: Anion Gap 14 (12-20); Blood Urea Nitrogen 9 mg/dL (9-16); Calcium 9.2 mg/dL (8.4-10.2); Carbon Dioxide 23 mmol/L (22-29); Chloride 104 mmol/L (96-108); Creatinine Clr Calc Pharmacy 84.2; Estimated Glomerular Filt Rate > 60; Glucose Random 126 mg/dL (60-115); Potassium 4.6 mmol/L (3.3-5.1); Sodium 136 mmol/L (135-145)
[2021-02-15] MEDS: ondansetron HCL 4 MG/2 ML VIAL IVPUSH ×2 (12:38→19:42)
[2021-02-15] MEDS: ceFAZolin Sodium/Dextrose,Iso 2 GM/50 ML PIGGYBACK IV (13:40)
[2021-02-15] MEDS: buPROPion HCl XL 150 MG TAB.ER.24H 450 MG PO (15:06)
[2021-02-15] MEDS: 0.9 % Sodium Chloride Flush 3 ML SYRINGE IVFLUSH (19:42)
[2021-02-16] MEDS: HYDROmorphone HCl 0.5 MG/0.5 ML SYRINGE 0.25 MG IVPUSH (03:17)
[2021-02-16 04:00] VITALS: BP 110/76; PULSE 65; RESP 17; TEMP 36.3; O2SAT 97
[2021-02-16] MEDS: ondansetron HCL 4 MG/2 ML VIAL IVPUSH ×2 (04:15→11:48)
[2021-02-16 05:42] LABS: MANUAL DIFF FLAG NO
[2021-02-16 05:45] LABS: Basophils Percent Auto 0.2 % (0-2); Eosinophils Percent Auto 0.2 % (0-4); Hematocrit 38.8 % (37.0-47.0); Imm Gran Abs Auto 0.03 X10*3/uL (0.00-0.03); Imm Gran Pct Auto 0.3 % (0.0-0.4); Lymphocytes Absolute Auto 1.4 X10*3/uL (1.2-4.9); Lymphocytes Percent Auto 12.1 % (20-40); Mean Corpuscular HGB Conc 33.5 g/dl (31.0-35.0); Mean Corpuscular Hemoglobin 33.6 pg (27.0-33.0); Mean Corpuscular Volume 100.3 fL (80.0-98.0); Mean Platelet Volume 11.1 fL (9.4-12.3); Monocytes Absolute Auto 1.1 X10*3/uL (0.1-1.2); Monocytes Percent Auto 9.2 % (2-11); Neutrophils Absolute Auto 8.9 x10*3/uL (2.0-8.3); Platelet Count 219 X10*3/uL (160-400); Red Blood Count 3.87 X10*6/uL (4.20-5.50); Red Cell Distribution Width 12.7 % (11.0-16.0); White Blood Count 11.4 X10*3/uL (4.8-10.8)
[2021-02-16] MEDS: Lactated Ringers 1,000 ML 100 ML IVCONT (06:21)
[2021-02-16 06:27] LABS: Anion Gap 14 (12-20); Blood Urea Nitrogen 9 mg/dL (9-16); Calcium 9.1 mg/dL (8.4-10.2); Carbon Dioxide 21 mmol/L (22-29); Chloride 104 mmol/L (96-108); Creatinine Clr Calc Pharmacy 108.5; Estimated Glomerular Filt Rate > 60; Glucose Random 85 mg/dL (60-115); Potassium 4.2 mmol/L (3.3-5.1); Sodium 135 mmol/L (135-145)
[2021-02-16 07:45] VITALS: BP 123/76; PULSE 61; RESP 18; TEMP 36.8; O2SAT 97
[2021-02-16] MEDS: buPROPion HCl XL 150 MG TAB.ER.24H 450 MG PO (09:23)
[2021-02-16] MEDS: Famotidine/PF 20 MG/2 ML VIAL IVPUSH (09:23)
--- NOTE | 2021-02-16 11:10 | MHC.CM.PN ---
CM MET WITH PT WHO REPORTS SHE LIVES WITH HER S/O AND IS INDEPENDENT WITH CARE PT DENIES USE OF DME OR HOME/COMMUNITY SERVICES PT IS UNSURE IF SHE HAS A HCP, SHE DECLINES TO COMPLETE ONE TODAY BUT WILL TAKE A BLANK ONE AT DC PT CONFIRMS HER PCP IS RADHA WANG PT WILL DC HOME TODAY WITH NO SERVICES S/O TO TRANSPORT
[2021-02-16 11:33] VITALS: BP 137/76; PULSE 68; RESP 18; TEMP 36.2; O2SAT 98
--- NOTE | 2021-02-16 15:36 | HO.POSTANES ---
Post Anesthesia Evaluation Post Anesthesia Evaluation Vital Signs: Vital Signs Temp Pulse Resp BP Pulse Ox 02/16/21 11:33 97.2 F 68 18 137/76 98 02/16/21 07:45 98.3 F 61 18 123/76 97 02/16/21 04:00 97.4 F 65 17 110/76 97 Anesthesia: General Endotracheal-GETA Mental Status: Awake Pain Control: Satisfactory Nausea/Vomiting: None Hydration: Adequate Anesthesia-Related Issues: No Anes. Related Issues
== END 2021-02-16 14:19 | disposition home or self-care (01) ==
LOC: HO.SSS 10:46 → HO.S3 14:07
PROVIDERS: Absent Provider Physician Assistant; PCP Registered Nurse; Visit Provider Surgery
PROC: (CPT 43845; principal; 2021-02-15 07:30)
DX: E66.01 Morbid (severe) obesity due to excess calories (principal); Z68.38 Body mass index [BMI] 38.0-38.9, adult; K44.9 Diaphragmatic hernia without obstruction or gangrene; K21.9 Gastro-esophageal reflux disease without esophagitis; I45.10 Unspecified right bundle-branch block; F32.9 Major depressive disorder, single episode, unspecified; K74.00 Hepatic fibrosis, unspecified; J45.909 Unspecified asthma, uncomplicated; Z98.84 Bariatric surgery status; Z90.3 Acquired absence of stomach [part of]; Z79.899 Other long term (current) drug therapy; Z88.8 Allergy status to other drugs, medicaments and biological substances; Z20.822 Contact with and (suspected) exposure to COVID-19; Z90.49 Acquired absence of other specified parts of digestive tract; Z87.19 Personal history of other diseases of the digestive system
CPT/HCPCS: 43775; 43281; 49329; 36415; 80048; 80053; 80061; 83036; 83525; 84443; 85014; 85018; 85025; 85610; 85730; 86140; 86850; 86900; 86901; 87635; 88307; 88342; 99024; A4649; J0131; J0690; J1100; J1170; J2250; J2405; J2550; J3010

== ENCOUNTER → 2021-02-21 07:21 | Outpatient (BNVA) | payer OTHER, SELFPAY | PROVIDERS: PCP Registered Nurse; Visit Provider Surgery ==

== ENCOUNTER 2021-03-11 10:26 | Emergency (ER) | payer OTHER, SELFPAY ==
--- NOTE | ~2021-03-11 | CT_ITS ---
EXAMINATION: CT ABDOMEN AND PELVIS WITH CONTRAST CLINICAL INFORMATION: Right lower quadrant pain COMPARISON: None TECHNIQUE: Multidetector volumetric images were obtained from the superior aspect of the liver through the pubic symphysis following administration 85 mL of Omnipaque 350 intravenous contrast. Sagittal and coronal reformatted images were obtained on the technologist's workstation. Oral contrast: No This CT examination was performed using dose optimization techniques as appropriate, variously including the following: *Automated exposure control *Adjustment of mA and/or kV according to patient size (this includes techniques or standardized protocols for targeted exams where dose is matched to indication/reason for exam; i.e. extremities or head) *Use of iterative reconstruction technique DLP: 817 mGy-cm FINDINGS: LUNG BASES: The visualized lung bases are unremarkable. LIVER, GALLBLADDER, AND BILIARY TREE: The liver is normal in size, shape, and attenuation. No focal hepatic lesion or biliary ductal dilatation is present. Cholecystectomy. No biliary ductal dilatation. PANCREAS: Unremarkable. SPLEEN: Unremarkable. ADRENAL GLANDS: Unremarkable. KIDNEYS AND URETERS: The kidneys are normal in size, shape, and attenuation. No hydronephrosis, hydroureter, or calculi seen. No perinephric stranding. BLADDER: Unremarkable. GASTROINTESTINAL TRACT: Postoperative changes consistent with prior sleeve gastrectomy. Small bowel is nondilated. Normal appendix, for example coronal image 35/83. Colonic diverticulosis without evidence of colitis or diverticulitis. There is stool in the right colon. The remainder of the colon is largely collapsed. ABDOMINAL WALL: Postoperative changes of the medial aspect of the right upper quadrant abdominal wall. LYMPH NODES: Normal sized right lower quadrant lymph nodes are present. No retroperitoneal, iliac, inguinal, or mesenteric lymphadenopathy. VASCULAR: Unremarkable. PELVIC VISCERA: Well-circumscribed low density structures in the fundus of the uterus may represent necrotic fibroids. 4.5 cm simple cyst in the right ovary. Normal left ovary. OSSEOUS STRUCTURES: Severe degenerative changes at the L2-L3 level. Lower lumbar facet arthropathy. CT/CT abdomen pelvis w IV con IMPRESSION: Normal appendix. 4.5 cm simple appearing right ovarian cyst. In a premenopausal patient, no imaging follow-up is recommended. No other findings to suggest a cause of right lower quadrant pain. Fleischner guidelines were followed.
[2021-03-11 10:49] VITALS: BP 135/94; PULSE 96; RESP 22; TEMP 36.7; O2SAT 100; BMI 35.1
[2021-03-11 15:42] LABS: MANUAL DIFF FLAG NO
[2021-03-11 15:52] LABS: Basophils Percent Auto 0.4 % (0-2); Eosinophils Absolute Auto 0.1 X10*3/uL (0.0-0.4); Eosinophils Percent Auto 1.9 % (0-4); Hematocrit 42.2 % (37.0-47.0); Hemoglobin 14.6 g/dl (12.0-16.0); Imm Gran Abs Auto 0.01 X10*3/uL (0.00-0.03); Imm Gran Pct Auto 0.2 % (0.0-0.4); Lymphocytes Absolute Auto 0.8 X10*3/uL (1.2-4.9); Mean Corpuscular HGB Conc 34.6 g/dl (31.0-35.0); Mean Corpuscular Volume 98.4 fL (80.0-98.0); Mean Platelet Volume 11.8 fL (9.4-12.3); Monocytes Absolute Auto 0.4 X10*3/uL (0.1-1.2); Monocytes Percent Auto 7.7 % (2-11); Neutrophils Absolute Auto 3.8 x10*3/uL (2.0-8.3); Neutrophils Percent Auto 73.8 % (45-73); Platelet Count 176 X10*3/uL (160-400); Red Blood Count 4.29 X10*6/uL (4.20-5.50); Red Cell Distribution Width 12.1 % (11.0-16.0); White Blood Count 5.2 X10*3/uL (4.8-10.8)
[2021-03-11 16:01] LABS: Alanine Aminotransferase 93 U/L (0-31); Albumin Level 4.5 g/dL (3.5-5.0); Alkaline Phosphatase 104 U/L (39-117); Anion Gap 10 (12-20); Aspartate Amino Transferase 43 U/L (5-31); Bilirubin Total 0.9 mg/dL (0.0-1.0); Blood Urea Nitrogen 14 mg/dL (9-16); Calcium 9.6 mg/dL (8.4-10.2); Carbon Dioxide 27 mmol/L (22-29); Chloride 109 mmol/L (96-108); Creatinine Clr Calc Pharmacy 97.2; Estimated Glomerular Filt Rate > 60; Glucose Random 87 mg/dL (60-115); Potassium 4.4 mmol/L (3.3-5.1); Sodium 142 mmol/L (135-145); Total Protein 7.1 g/dL (6.5-8.0)
--- NOTE | 2021-03-11 17:16 | ED.ABDPAIN ---
HPI - Abdominal Pain General Chief Complaint: Abdominal Pain Stated Complaint: r sided abd pain Time Seen by Provider: 03/11/21 17:06 Source: patient Mode of arrival: ambulatory Limitations: no limitations History of Present Illness HPI narrative: This is a very pleasant 50 years old the female presented to the ED with a chief complaint of right lower quadrant abdominal pain since this morning, denies any fever chills vomiting or diarrhea. She is status post laparoscopic sleeve gastrotomy February 15. The pain is localized all in the right lower quadrant no in the upper abdomen MD elicited complaint: abdominal pain Pertinent past history: other (lap sleeve gatrotomy) Onset (ago): hour(s) (10) Pain Consistency: constant Location: RLQ Severity: mild Quality: cramping Radiation: none Migration to: no migration Exacerbating factors: nothing Relieving factors: nothing Associated symptoms: denies other symptoms Related Data Home Medications Medication Instructions Recorded Confirmed bupropion HCl 300 mg 24 hr tablet, 450 mg PO DAILY tab 07/14/20 02/21/21 extended release albuterol sulfate 90 mcg/actuation 2 puff INHALATION Q6H PRN 08/11/20 02/21/21 aerosol inhaler cyclobenzaprine 10 mg tablet 10 mg PO BEDTIME PRN tab 09/08/20 02/21/21 fexofenadine 60 mg tablet (Ally 180 mg PO DAILY tab 09/08/20 02/21/21 Allergy) Previous Rx's Medication Instructions Recorded ondansetron HCl 4 mg tablet 4 mg PO Q12H #20 tab 02/05/21 (Zofran) pantoprazole 40 mg tablet,delayed 40 mg PO DAILY #30 tab 02/05/21 release sucralfate 100 mg/mL oral 10 ml PO BID #400 ml 02/05/21 suspension Allergies Allergy/AdvReac Type Severity Reaction Status Date / Time codeine [CODEINE] AdvReac Intermediate MIGRAINE Verified 02/21/21 07:38 OKRA Allergy Intermediate HIVES Uncoded 02/21/21 07:38 Review of Systems Review of Systems Yes all other systems are reviewed and are negative Constitutional: Denies anorexia and Denies fever(s) Denies odynophagia Gastrointestinal: Denies dyspepsia, Denies heartburn, Denies fecal incontinence, Denies diarrhea, Denies loose stools, Denies nausea, Denies odynophagia, Denies vomiting and Denies hematemesis Physical Exam Vital Signs: Vital Signs: Last Vital Signs Temp 98.1 F 03/11/21 10:49 Pulse 58 03/11/21 17:27 Resp 20 03/11/21 17:27 BP 120/65 03/11/21 17:27 Pulse Ox 99 03/11/21 17:27 BMI result Body Mass Index 35.1 Const: Orientation/consciousness: patient oriented x3 HENMT: Head: Yes normal to inspection Face and sinus: Yes normal facial exam Mouth: Normal oral and palatal mucosa present Neck: Neck: Yes normal visual inspection, Yes full ROM and Yes no lymphadenopathy Chest: Chest palpation & inspection: normal inspection of the chest Resp: Effort & Inspection: normal respiratory effort Auscultation: clear to auscultation bilaterally GI: Inspection: Yes normal to inspection Palpation (GI): Soft to palpation, not firm, Tenderness to palpation present (GI) (Mild tenderness in the right lower quadrant), no guarding and not rigid Auscultation: normal bowel sounds Skin: General skin exam: no rashes or lesions noted Neuro: General: patient oriented x3 Course Course Course Narrative: Case was signed off to Dr Boateng ct pending UA pending MDM - Abdominal Pain MDM Narrative Medical decision making narrative: her pain is in the right lower quadrant this could be appendicitis kidney stone urinary tract infection, I do not think she has a small-bowel obstruction she has no vomiting no nausea the pain is localized in the right lower quadrant, labs are normal, we are going to get a CT scan of the abdomen and pelvis urine is still pending Lab Data Result diagrams: 03/11/21 15:38 03/11/21 15:38 Labs: Lab Results 03/11/21 03/11/21 03/11/21 Range/Units 15:38 15:38 17:31 WBC 5.2 (4.8-10.8) X10*3/uL RBC 4.29 (4.20-5.50) X10*6/uL Hgb 14.6 (12.0-16.0) g/dl Hct 42.2 (37.0-47.0) % MCV 98.4 H (80.0-98.0) fL MCH 34.0 H (27.0-33.0) pg MCHC 34.6 (31.0-35.0) g/dl RDW 12.1 (11.0-16.0) % Plt Count 176 (160-400) X10*3/uL MPV 11.8 (9.4-12.3) fL Immature Gran % (Auto) 0.2 (0.0-0.4) % Neut % (Auto) 73.8 H (45-73) % Lymph % (Auto) 16.0 L (20-40) % [place] % (Auto) 7.7 (2-11) % Eos % (Auto) 1.9 (0-4) % Baso % (Auto) 0.4 (0-2) % Lymph # (Auto) 0.8 L (1.2-4.9) X10*3/uL [place] # (Auto) 0.4 (0.1-1.2) X10*3/uL Eos # (Auto) 0.1 (0.0-0.4) X10*3/uL Baso # (Auto) 0.0 (0.0-0.2) X10*3/uL Abs Immat Gran (auto) 0.01 (0.00-0.03) X10*3/uL Absolute Neuts (auto) 3.8 (2.0-8.3) x10*3/uL Absolute Nucleated RBC 0.000 (0.0-0.012) X10*3/uL Nucleated RBC % (auto) 0.0 (0.0-0.2) /100WBC Sodium 142 (135-145) mmol/L Potassium 4.4 (3.3-5.1) mmol/L Chloride 109 H (96-108) mmol/L Carbon Dioxide 27 (22-29) mmol/L Anion Gap 10 L (12-20) BUN 14 D (9-16) mg/dL Creatinine 0.81 (0.5-1.4) mg/dL Estim Creat Clear Calc 97.2 Estimated GFR > 60 Random Glucose 87 (60-115) mg/dL Calcium 9.6 (8.4-10.2) mg/dL Total Bilirubin 0.9 (0.0-1.0) mg/dL AST 43 H (5-31) U/L ALT 93 H (0-31) U/L Alkaline Phosphatase 104 D (39-117) U/L Total Protein 7.1 (6.5-8.0) g/dL Albumin 4.5 (3.5-5.0) g/dL Urine Color Urine Appearance Urine pH (5.0-8.0) Ur Specific [place] (1.005-1.025) Urine Protein (NEG-TRACE) MG/DL Urine Glucose (UA) (NEG) MG/DL Urine Ketones (NEG) MG/DL Urine Blood (NEG) Urine Nitrite (NEG) Ur Leukocyte Esterase (NEG) Urine RBC (0) /HPF Urine WBC (0-4) /HPF Ur Squamous Epith Cells /LPF Urine Bacteria /LPF Urine Test NEGATIVE (NEGATIVE) 03/11/21 Range/Units 17:31 WBC (4.8-10.8) X10*3/uL RBC (4.20-5.50) X10*6/uL Hgb (12.0-16.0) g/dl Hct (37.0-47.0) % MCV (80.0-98.0) fL MCH (27.0-33.0) pg MCHC (31.0-35.0) g/dl RDW (11.0-16.0) % Plt Count (160-400) X10*3/uL MPV (9.4-12.3) fL Immature Gran % (Auto) (0.0-0.4) % Neut % (Auto) (45-73) % Lymph % (Auto) (20-40) % [place] % (Auto) (2-11) % Eos % (Auto) (0-4) % Baso % (Auto) (0-2) % Lymph # (Auto) (1.2-4.9) X10*3/uL [place] # (Auto) (0.1-1.2) X10*3/uL Eos # (Auto) (0.0-0.4) X10*3/uL Baso # (Auto) (0.0-0.2) X10*3/uL Abs Immat Gran (auto) (0.00-0.03) X10*3/uL Absolute Neuts (auto) (2.0-8.3) x10*3/uL Absolute Nucleated RBC (0.0-0.012) X10*3/uL Nucleated RBC % (auto) (0.0-0.2) /100WBC Sodium (135-145) mmol/L Potassium (3.3-5.1) mmol/L Chloride (96-108) mmol/L Carbon Dioxide (22-29) mmol/L Anion Gap (12-20) BUN (9-16) mg/dL Creatinine (0.5-1.4) mg/dL Estim Creat Clear Calc Estimated GFR Random Glucose (60-115) mg/dL Calcium (8.4-10.2) mg/dL Total Bilirubin (0.0-1.0) mg/dL AST (5-31) U/L ALT (0-31) U/L Alkaline Phosphatase (39-117) U/L Total Protein (6.5-8.0) g/dL Albumin (3.5-5.0) g/dL Urine Color DK YELLOW Urine Appearance CLOUDY Urine pH 6.5 (5.0-8.0) Ur Specific [place] 1.025 (1.005-1.025) Urine Protein TRACE (NEG-TRACE) MG/DL Urine Glucose (UA) NEG (NEG) MG/DL Urine Ketones >=80 (NEG) MG/DL Urine Blood NEG (NEG) Urine Nitrite POS H (NEG) Ur Leukocyte Esterase 1+ H (NEG) Urine RBC 0-2 (0) /HPF Urine WBC 5-9 H (0-4) /HPF Ur Squamous Epith Cells TRACE /LPF Urine Bacteria 4+ /LPF Urine Test (NEGATIVE) Discharge Plan Discharge Clinical Impression: Abdominal pain Prescriptions: No Action albuterol sulfate 90 mcg/actuation HFA aerosol inhaler 2 puff inhalation Q6H PRN (Reason: Wheezing) RF: 0 bupropion HCl 300 mg tablet extended release 24 hr 450 mg PO DAILY RF: 0 fexofenadine [Ally Allergy] 60 mg tablet 180 mg PO DAILY RF: 0 cyclobenzaprine 10 mg tablet 10 mg PO BEDTIME PRN (Reason: muscle spasm) RF: 0 pantoprazole 40 mg tablet,delayed release (DR/EC) 40 mg PO DAILY Qty: 30 RF: 2 sucralfate 100 mg/mL suspension 10 ml PO BID Qty: 400 RF: 2 ondansetron HCl [Zofran] 4 mg tablet 4 mg PO Q12H Qty: 20 RF: 0 PMFSH Past Medical History Medical History Abnormal EKG Adjustment disorder, unspecified Asthma BMI 39.0-39.9,adult BMI 40.0-44.9, adult Depression DJD (degenerative joint disease) Gastroesophageal reflux disease Liver fibrosis Preoperative examination Shortness of breath Smoker Surgical History H/O gynecological procedure History of ankle surgery History of tonsillectomy and adenoidectomy Hx of cholecystectomy Hx of endoscopy Hx of foot surgery Hx of knee surgery Hx of removal of cyst Hx of tubal ligation Status post right knee replacement Family History Family History Mother Dementia Arthritis Father Hypertension OCD (obsessive compulsive disorder) Kidney tumor Sister No problems noted. Sister Anxiety Brother Acid reflux Social History Social History Are you a primary animal care taker to a significant other at home: No Do you presently have visiting nurse or other home services: No Alcohol intake: current Alcohol intake frequency: former alcohol drinker Patient Tobacco Use Status: Former Tobacco user Quit Date: 09/2020 Tobacco use type: Cigarette Cigarettes Per Day: 1 Years Smoked: 34 Advance Directives: No Advance Directives Information Provided: No Patient : No service: No Current occupational status: employed
[2021-03-11 17:27] VITALS: BP 120/65; PULSE 58; RESP 20; O2SAT 99
[2021-03-11] MEDS: Acetaminophen 325 MG TABLET 650 MG PO (17:36)
[2021-03-11 17:42] LABS: Appearance Urine CLOUDY; Color Urine DK YELLOW; Glucose Urine UA NEG (NEG); Leukocyte Esterase Urine 1+ (NEG); Nitrite Urine POS (NEG); PH 6.5 (5.0-8.0); Specific Gravity - Urine 1.025 (1.005-1.025); UACC Culture Trigger YES; Urine Blood NEG (NEG); Urine Ketones >=80 MG/DL (NEG); Urine Protein TRACE MG/DL (NEG-TRACE)
[2021-03-11 17:45] LABS: UPreg QC Valid YES; Urine Pregnancy NEGATIVE (NEGATIVE)
[2021-03-11 17:49] LABS: Bacteria Urine 4+ /LPF; RBC Urine 0-2 /HPF (0); Squamous Epithelial Cell Urine TRACE /LPF; UACC CULT YES
[2021-03-11] MEDS: iohexoL 350 MG/ML 100 ML INFUS..BTL 85 ML IV (18:16)
[2021-03-11 18:56] VITALS: BP 117/55; PULSE 61; RESP 16; O2SAT 100
== END 2021-03-11 20:10 | disposition home or self-care (01) ==
PROVIDERS: Emergency Provider Emergency Medicine; PCP Nurse Practitioner Family
DX: R10.31 Right lower quadrant pain (principal); N83.291 Other ovarian cyst, right side; J45.909 Unspecified asthma, uncomplicated; Z98.84 Bariatric surgery status
CPT/HCPCS: 36415; 74177; 80053; 81001; 81025; 85025; 87086; 87088; 87186; 99283; 99284; Q9967

== ENCOUNTER → 2021-03-26 08:01 | Outpatient (BNVA) | payer OTHER, SELFPAY | PROVIDERS: PCP Registered Nurse; Visit Provider Surgery ==

== ENCOUNTER 2021-04-04 11:21 | Outpatient (REF) | payer OTHER, SELFPAY ==
[2021-04-04 16:12] LABS: CT PCR NOT DETECTED (Not Detect.); NG PCR NOT DETECTED (Not Detect.)
== END 2021-04-04 11:22 | disposition home or self-care (01) ==
LOC: HO.LAB 11:21
PROVIDERS: PCP Nurse Practitioner Family; Visit Provider Obstetrics & Gynecology
DX: R10.2 Pelvic and perineal pain (principal)
CPT/HCPCS: 87491; 87591

== ENCOUNTER → 2021-04-23 08:16 | Outpatient (BNVA) | payer OTHER, SELFPAY | PROVIDERS: PCP Nurse Practitioner Family; Visit Provider Dietitian, Registered | DX: E66.9 Obesity, unspecified (principal); Z68.32 Body mass index [BMI] 32.0-32.9, adult | CPT/HCPCS: 97803 ==

== ENCOUNTER 2021-05-03 11:10 | Outpatient (REF) | payer OTHER, SELFPAY ==
--- NOTE | ~2021-05-03 | US_ITS ---
EXAMINATION: US PELVIS CLINICAL INFORMATION: Pain COMPARISON: Previous CT of the abdomen and pelvis March 2021 TECHNIQUE: Ultrasound of the pelvis is performed using both transabdominal and transvaginal transducers along with Doppler. Transvaginal imaging is performed due to inadequate visualization transabdominally. FINDINGS: The uterus is anteverted and measures 7 x 3.5 x 4.6 cm in dimension. Endometrial thickness is normal measuring 0.3 cm. There are 2 cysts seen in the posterior upper uterus adjacent to the endometrium. These measure 8 x 5 x 6 mm and 1.1 x 0.8 x 0.9 cm. These are larger than myometrial cysts seen with adenomyosis and cystic degeneration of fibroids is favored. No other focal uterine lesion is seen. There are nabothian cysts in the cervix. The ovaries are normal-appearing. The right ovary measures 2.1 x 1.3 x 1 cm in the left ovary measures 2.3 x 0.9 x 1.5 cm. There is no fluid in the pelvis. US/US pelvic and transvaginal IMPRESSION: Normal-appearing ovaries. The 4.5 cm right ovarian cyst on CT 03/11/2021 is no longer seen. 2 cysts in the uterus, question representing necrotic fibroids.
== END 2021-05-03 11:11 | disposition home or self-care (01) ==
LOC: HO.US 11:10
PROVIDERS: PCP Nurse Practitioner Family; Visit Provider Obstetrics & Gynecology
DX: R10.2 Pelvic and perineal pain (principal)
CPT/HCPCS: 76830; 76856

== ENCOUNTER → 2021-05-14 08:13 | Outpatient (BNVA) | payer OTHER, SELFPAY | PROVIDERS: PCP Nurse Practitioner Family; Referring Provider Surgery; Visit Provider Dietitian, Registered | DX: E66.9 Obesity, unspecified (principal); Z68.31 Body mass index [BMI] 31.0-31.9, adult | CPT/HCPCS: 97803 ==

== ENCOUNTER → 2021-05-17 11:40 | Outpatient (BNVA) | payer OTHER, SELFPAY | PROVIDERS: Visit Provider Obstetrics & Gynecology ==

== ENCOUNTER → 2021-06-04 08:18 | Outpatient (BNVA) | payer OTHER, SELFPAY | PROVIDERS: Referring Provider Surgery; Visit Provider Dietitian, Registered | DX: Z13.89 Encounter for screening for other disorder (principal) ==

== ENCOUNTER 2022-08-02 09:26 | Outpatient (REF) | payer OTHER, SELFPAY ==
--- NOTE | ~2022-08-02 | XR_ITS ---
EXAMINATION: XR PELVIS CLINICAL INFORMATION: Pain. COMPARISON: None available. TECHNIQUE: AP view of the pelvis. FINDINGS: There is normal symmetry of bilateral hip joints and SI joints. No bony erosive changes. No visible acute fracture, dislocation or subluxation seen. Mild degenerative disc changes L3-L4 disc levels with spondylosis is noted. No aggressive lytic or sclerotic process seen. XR/XR pelvis 1-2V IMPRESSION: Mild degenerative disc changes L3-L4 disc level with spondylosis. No visible acute fracture or dislocation seen.
== END 2022-08-02 09:27 | disposition home or self-care (01) ==
LOC: HO.HOSX 09:26
PROVIDERS: Visit Provider Orthopaedic Surgery
DX: M70.62 Trochanteric bursitis, left hip (principal)
CPT/HCPCS: 20610; 72170; J1100